=== PATIENT | male | born 1975 | race Caucasian/White ===

== ENCOUNTER 2019-03-27 09:32 | Emergency (ER) | payer OTHER ==
[2019-03-27 09:41] VITALS: BP 147/95
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
== END 2019-03-27 10:43 | disposition home or self-care (01) ==
LOC: ED 09:32
DX: S06.0X1A Concussion with loss of consciousness of 30 minutes or less, initial encounter (principal); S00.81XA Abrasion of other part of head, initial encounter; S50.811A Abrasion of right forearm, initial encounter; S80.811A Abrasion, right lower leg, initial encounter; S00.83XA Contusion of other part of head, initial encounter; V86.69XA Passenger of other special all-terrain or other off-road motor vehicle injured in nontraffic accident, initial encounter; Y93.89 Activity, other specified
CPT/HCPCS: 99283

== ENCOUNTER 2022-11-17 11:21 | Outpatient (CLI) | payer OTHER ==
--- NOTE | 2022-11-18 12:18 | XRAY Report ---
PROCEDURE: Ankle 3 View RT INDICATIONS: ANKLE PAIN,RIGHT TECHNIQUE: 3 views of the ankle were acquired. COMPARISON: None. FINDINGS: Bones: No fractures or dislocations. Ankle mortise is normally aligned. No suspicious bony lesions . 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 Soft tissues: No tibiotalar joint effusion. Achilles tendon appears normal. Soft tissue swelling o ena the os trigonum. IMPRESSION: 1. No acute osseous abnormalities. 2. 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 If clinically indicated, MRI may be he lpful. Reviewed by: Chanell Espino MD on 11/18/2022 12:17 PM PST Approved by: Chanell Espino MD on 11/18/2022 12:17 PM PST Station ID: [id number]
== END 2022-11-17 11:22 | disposition home or self-care (01) ==
LOC: DI.S 11:21
PROVIDERS: ATTEND Registered Nurse
DX: M25.571 Pain in right ankle and joints of right foot (principal); Q68.8 Other specified congenital musculoskeletal deformities

== ENCOUNTER 2022-11-28 08:53 | Outpatient (CLI) | payer OTHER ==
--- NOTE | 2022-11-28 13:41 | XRAY Report ---
PROCEDURE: Ankle 3 View RT INDICATIONS: RIGHT ANKLE TECHNIQUE: 3 views of the ankle were acquired. COMPARISON: 11/17/2022 FINDINGS: Bones: No fractures or dislocations. Ankle mortise is normally aligned. No suspicious bony lesions . Os trigonum is again seen with chronic fragmented appearance. Soft tissues: No tibiotalar joint effusion. Achilles tendon appears normal. IMPRESSION: No ankle fracture or dislocation. No significant changes from prior study. 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 Reviewed by: Rajiv Dinh MD on 11/28/2022 1:40 PM PST Approved by: Rajiv Dinh MD on 11/28/2022 1:40 PM PST Station ID: [id number]
== END 2022-11-28 08:54 | disposition home or self-care (01) ==
LOC: DI.WOS 08:53
PROVIDERS: ATTEND Physician Assistant Surgical
DX: M25.571 Pain in right ankle and joints of right foot (principal)